=== PATIENT | male | born 1990 | race African-American/Black ===

== ENCOUNTER 2020-06-03 21:04 | Observation (INO) ==
[2020-06-03] MEDS ORDERED: ASPIRIN EC 325 MG TABLET PO STA (23:10)
[2020-06-03 23:12] LABS: Basophils % 0.3 % (0.0-0.8); Eosinophils # 0.1 10*3/uL (0.0-0.87); Eosinophils % 0.7 % (0.00-10.9); Hematocrit 33.9 VOL% (42.0-52.0); Hemoglobin 11.2 GM/DL (14.0-18.0); Immature Granulocytes % 1.1 %; Immature Granulocytes Absolute 0.16 #; Lymphocytes % 6.8 % (21.2-54.2); Mean Corpuscular Volume 85.4 FL (87-102); Mean Platelet Volume 11.1 FL (9.6-12.0); Monocytes % 6.8 % (1.7-12.7); Neutrophils % 84.3 % (38.7-73.9); Platelet Count 327 T/CUMM (130-400); Red Blood Count 3.97 MC/CUMM (3.8-5.5); Red Cell Distribution Width 13.2 % (9.3-17.3); White Blood Count 15.1 T/CUMM (4-12)
[2020-06-03 23:25] LABS: Albumin 2.9 G/DL (3.4-5.0); Calcium 8.9 MG/DL (8.5-10.1); Osmolality,Calculated 275.7 MOS/KG (273-304); Potassium 3.4 MMOL/L (3.5-5.1)
[2020-06-04 00:16] LABS: Bacteria,Urine Occasional /HPF (Few); Bilirubin,Urine Negative (Negative); Blood, Urine Negative (Negative); Glucose,Urine (UA) Negative (Negative); Ketones,Urine Negative (Negative); Mucus,Urine Occasional /LPF (Occasional); Nitrite,Urine Negative (Negative); Protein,Urine 30 MG/DL; RBC,Urine 1 /HPF (0-4); Urine Appearance CLEAR (Clear); Urine Color Yellow (Yellow); Urine Specific Gravity 1.023 (1.001-1.035); WBC,Urine 1 /HPF (0-6)
[2020-06-04 00:49] LABS: Barbiturates Screen,Urine Negative (Negative); Benzodiazepines Screen,Urine Negative (Negative); Cannabinoid Screen,Urine Positive (Negative); Opiate Screen,Urine Negative (Negative); Phencyclidine Screen,Urine Negative (Negative)
[2020-06-04] MEDS ORDERED: ENOXAPARIN 30 MG/0.3 ML SYRINGE SUBCUT STA (01:07)
[2020-06-04] MEDS ORDERED: ENOXAPARIN 60 MG/0.6 ML SYRINGE ONE ×2 (01:40→01:43)
[2020-06-04] MEDS ORDERED: DOCUSATE SODIUM 100 MG CAPSULE PO PRN (04:23)
[2020-06-04] MEDS ORDERED: MORPHINE 4 MG/1 ML VIAL IV PRN (04:23)
[2020-06-04] MEDS ORDERED: DEXTROSE 50% 25 GM/50 ML VIAL IV PRN (04:23)
[2020-06-04] MEDS ORDERED: ONDANSETRON 4 MG/2 ML VIAL IV PRN (04:23)
[2020-06-04] MEDS ORDERED: ACETAMINOPHEN 325 MG TABLET PO PRN (04:23)
[2020-06-04] MEDS ORDERED: GLUCAGON 1 MG VIAL IM PRN (04:23)
[2020-06-04] MEDS ORDERED: KETOROLAC 15 MG/1 ML VIAL IV ONE (04:37)
[2020-06-04] MEDS ORDERED: MAGNESIUM SULF RIDER 2 GM in PREMIX 1 EACH IV PRN (04:47)
[2020-06-04] MEDS ORDERED: MAGNESIUM SULF RIDER 4 GM in PREMIX 1 EACH IV PRN (04:47)
[2020-06-04] MEDS ORDERED: ENOXAPARIN 60 MG/0.6 ML SYRINGE SUBCUT SCH (05:00)
[2020-06-04] MEDS: POTASSIUM CHLORIDE 20 MEQ TABLET PO PRN ×3 (06:18→10:05)
[2020-06-04 06:25] LABS: Basophils % 0.2 % (0.0-0.8); Eosinophils # 0.1 10*3/uL (0.0-0.87); Eosinophils % 0.4 % (0.00-10.9); Hematocrit 36.5 VOL% (42.0-52.0); Hemoglobin 11.9 GM/DL (14.0-18.0); Immature Granulocytes % 0.8 %; Immature Granulocytes Absolute 0.12 #; Lymphocytes # 2.3 10*3/uL (1.4-4.0); Lymphocytes % 14.3 % (21.2-54.2); Mean Corpuscular HGB Conc 32.6 GM/DL (32-36); Mean Corpuscular Volume 87.7 FL (87-102); Mean Platelet Volume 10.6 FL (9.6-12.0); Monocytes % 6.6 % (1.7-12.7); Neutrophils % 77.7 % (38.7-73.9); Platelet Count 362 T/CUMM (130-400); Red Blood Count 4.16 MC/CUMM (3.8-5.5); Red Cell Distribution Width 13.5 % (9.3-17.3); White Blood Count 15.8 T/CUMM (4-12)
[2020-06-04 06:41] LABS: Hypochromasia 1+; Microcytosis 1+; Platelet Estimate Adequate
[2020-06-04 06:48] LABS: Folate 7.8 NG/ML (5.38-24.0); Vitamin B12 425 PG/ML (211-911)
[2020-06-04 06:52] LABS: Calcium 9.2 MG/DL (8.5-10.1); Osmolality,Calculated 274.5 MOS/KG (273-304); Potassium 4.4 MMOL/L (3.5-5.1); Risk Ratio 2.44; Thyroid Stimulating Hormone 0.963 uIU/ml (0.358-3.74); VLDL CHOLESTEROL 10.6 MG/DL
[2020-06-04 06:57] LABS: % Iron Saturation 8.4 % (18-50)
[2020-06-04 07:25] LABS: Sedimentation Rate-Westergren 71 MM/HR (0-15)
[2020-06-04 08:00] LABS: Basophils # 0.1 10*3/uL (0.0-0.2); Basophils % 0.3 % (0.0-0.8); Eosinophils # 0.1 10*3/uL (0.0-0.87); Eosinophils % 0.6 % (0.00-10.9); Hematocrit 37.2 VOL% (42.0-52.0); Hemoglobin 11.9 GM/DL (14.0-18.0); Immature Granulocytes % 0.5 %; Immature Granulocytes Absolute 0.08 #; Lymphocytes # 2.3 10*3/uL (1.4-4.0); Lymphocytes % 14.4 % (21.2-54.2); Mean Corpuscular Volume 88.4 FL (87-102); Mean Platelet Volume 11.2 FL (9.6-12.0); Monocytes % 6.7 % (1.7-12.7); Neutrophils % 77.5 % (38.7-73.9); Platelet Count 355 T/CUMM (130-400); Red Blood Count 4.21 MC/CUMM (3.8-5.5); Red Cell Distribution Width 13.5 % (9.3-17.3); White Blood Count 16.1 T/CUMM (4-12)
[2020-06-04] MEDS ORDERED: KETOROLAC 10 MG TABLET PO PRN (09:21)
[2020-06-04] MEDS ORDERED: methylPREDNISolone SOD SUC 125 MG/2 ML VIAL IV ONE (09:21)
[2020-06-04 09:28] LABS: Hemoglobin A1 (Alkaline) 97.2 % (96.5-98.5); Hemoglobin A2 (Alkaline) 2.8 % (1.5-3.5)
[2020-06-04] MEDS: KETOROLAC 10 MG TABLET PO SCH ×3 (10:05→21:25)
[2020-06-04 12:20] LABS: HIV Antigen/Antibody Result Nonreactive (Nonreactive); Hepatitis B Surface Ag Quant < 0.10 Index; Hepatitis B Surface Ag Result Non-Reactive (NonReactive); Hepatitis C Virus Ab Quant 0.04 Index; Hepatitis C Virus Ab Result Non-Reactive (NonReactive)
[2020-06-04 13:56] LABS: Cyclic Citrull Peptide Interp Negative
[2020-06-04] MEDS: methylPREDNISolone SOD SUC 40 MG/1 ML VIAL IV SCH (21:25)
[2020-06-05] MEDS: KETOROLAC 10 MG TABLET PO SCH ×2 (04:38→09:12)
[2020-06-05 05:55] LABS: Basophils % 0.1 % (0.0-0.8); Eosinophils # 0.1 10*3/uL (0.0-0.87); Eosinophils % 0.3 % (0.00-10.9); Hemoglobin 12.9 GM/DL (14.0-18.0); Immature Granulocytes Absolute 0.21 #; Lymphocytes # 1.7 10*3/uL (1.4-4.0); Lymphocytes % 7.9 % (21.2-54.2); Mean Corpuscular HGB Conc 33.9 GM/DL (32-36); Mean Corpuscular Volume 84.8 FL (87-102); Mean Platelet Volume 10.7 FL (9.6-12.0); Monocytes % 3.2 % (1.7-12.7); Neutrophils % 87.5 % (38.7-73.9); Platelet Count 339 T/CUMM (130-400); Red Blood Count 4.48 MC/CUMM (3.8-5.5); Red Cell Distribution Width 13.4 % (9.3-17.3); White Blood Count 21.3 T/CUMM (4-12)
[2020-06-05 06:20] LABS: Calcium 9.7 MG/DL (8.5-10.1); Hypochromasia 1+; Lymphocytes 9 % (20-55); Microcytosis 1+; Osmolality,Calculated 275.8 MOS/KG (273-304); Platelet Estimate Adequate; Potassium 5.1 MMOL/L (3.5-5.1); Segmented Neutrophils 89 % (50-85); Total Cells Counted 100
[2020-06-05] MEDS: methylPREDNISolone SOD SUC 40 MG/1 ML VIAL IV SCH (09:13)
[2020-06-05 11:46] VITALS: BP 151/87
[2020-06-07 13:16] LABS: Ehrlichia Chaffeensis (HME)IgG <1:64 titer (<1:64)
[2020-06-10 09:53] LABS: Anti SS-A Antibodies < 16 EU/ML
== END 2020-06-05 11:13 | disposition home or self-care (01) ==
LOC: N.ED 21:04 → N.EDINP 21:04 → SUATTDRO 06-04 03:26 → N.CC 06-04 03:55
PROVIDERS: ADMIT Internal Medicine; ATTEND Internal Medicine